=== PATIENT | male | born 1990 | race Native Hawaiian/Other Pacific Islander ===

== ENCOUNTER 2019-11-28 20:25 | Emergency (ER) | payer OTHER ==
[~2019-11-28] VITALS: Ht 165.1 cm; Wt 79.4 kg
[2019-11-28 21:29] LABS: POTASSIUM 4.2 mmol/L (3.6-5.2); SODIUM 141 mmol/L (136-145)
[2019-11-28 21:37] LABS: PLATELET COUNT 302 K/uL (142-355)
[2019-11-28 21:42] LABS: PARTIAL THROMBOPLASTIN TIME 26.3 SECONDS (24.5-33.6)
[2019-11-28 22:11] VITALS: BP 119/74; TEMP 98.6
== END 2019-11-28 22:11 | disposition home or self-care (01) ==
LOC: ED 20:25
PROVIDERS: Hospitalist
DX: R07.89 Other chest pain (principal); F41.8 Other specified anxiety disorders
CPT/HCPCS: 80053; 82550; 82553; 83880; 84484; 85027; 85610; 85730; 93005; 99284